=== PATIENT | male | born 1975 | race Caucasian/White ===

== ENCOUNTER 2018-01-31 10:53 | Emergency (ER) | END 2018-01-31 12:27 | disposition home or self-care (01) ==

== ENCOUNTER 2018-08-04 10:59 | Emergency (ER) | payer MEDICAID ==
[~2018-08-04] VITALS: Wt 84.1 kg
[~2018-08-04 10:59] MED LIST: NAPR-985 PO
[2018-08-04 11:03] VITALS: BP 141/85; PULSE 85; RESP 18
[2018-08-04] MEDS ORDERED: KETOROLAC 60 MG INJ IM STA (12:06)
[2018-08-04] MEDS ORDERED: IBUP-1542 PO (13:39)
--- NOTE | 2018-08-04 18:26 | ERD ---
ER Documentation Chief Complaint Chief Complaint LEFT SHOULDER PAIN, NO TRAUMA, ONSET YESTERDAY HPI 43-year-old male patient with no significant past medical history presents to ED complaining of left shoulder pain that started yesterday. States that he was sleeping in an awkward position, started to have pain when he woke up this morning. Reports that he was sleeping with his neck in a flexed position on to his left shoulder. Denies any direct trauma. Denies any fever, chills, chest pain, shortness of breath, nausea, vomiting, diarrhea, neck stiffness, wheezing. Denies any dyspnea on exertion orthopnea. ROS All systems reviewed and are negative except as per history of present illness. Medications Home Meds Active Scripts Ibuprofen* (Motrin*) 600 Mg Tab, 600 MG PO Q6, #30 TAB Prov:CONSUELO GREENE PA-C 08/04/18 Naproxen* (Naprosyn*) 500 Mg Tablet, 500 MG PO BID PRN for PAIN AND/OR INFLAMMATION, #30 TAB Prov:GERMÁN HARDEN PA-C 01/31/18 Allergies Allergies: Coded Allergies: No Known Allergy (Unverified , 01/31/18) PMhx/Soc Hx Alcohol Use: Yes (socially) Hx Substance Use: No Hx Tobacco Use: No Smoking Status: Never smoker FmHx Family History: No diabetes, No coronary disease Physical Exam Vitals Vital Signs Date Temp Pulse Resp B/P (MAP) Pulse Ox O2 O2 Flow FiO2 Time Delivery Rate 08/04/18 98.1 85 18 141/85 99 11:03 (103) Physical Exam Const: Srt-qni-g[place], well-nourished. In no acute distress. Head: Atraumatic, normocephalic. No hematoma. No moss sign. Eyes: Normal Conjunctiva without injection. No purulent discharge. PERRL. EOMI ENT: Normal external ear. Ear canal without erythema. Tympanic membrane pearly thorne without effusion or bulging. Nasal canal clear with normal turbinates. Moist oropharynx without tonsillar exudates. Non-erythematous pharynx. Uvula midline. No drooling. No trismus. Neck: Full range of motion. No meningismus. No cervical lymphadenopathy. Resp: Clear to auscultation bilaterally. No wheezing, rhonchi, rales, or crackles. No accessory muscle use. No retractions. Cardio: Regular rate and rhythm. No murmurs, rubs or gallops. Abd: Soft, non tender, non distended. Normal bowel sounds. No palpable masses. No rebound tenderness. No guarding. Skin: No petechiae or rashes Back: No midline tenderness. No CVA tenderness. Ext: No cyanosis, or edema. Tenderness to palpation of the left anterior humerus and AC joint. Limited range of motion with flexion extension, internal and external rotation. Patient also had some pain with abduction. Neur: Awake and alert. Psych: Normal Mood and Affect Results 24 hrs Current Medications Medications Dose Sig/Noe Start Time Status Last (Trade) Ordered Route PRN Stop Time Admin Dose Reason Admin Ketorolac 60 mg ONCE STAT 08/04/18 DC 08/04/18 Tromethamine IM 12:06 12:16 (Toradol) 08/04/18 12:09 Procedures/MDM 43-year-old male patient with no significant past medical history presents to ED complaining of left shoulder pain that started yesterday. Patient is afebrile and nontoxic-appearing. Differentials include shoulder tendinitis. Patient did have improvement with 60 mg IM Toradol. Patient's range of motion has also improved. Patient's extremity symptoms have stabilized while they have been evaluated in the department and are appropriate for outpatient follow up. No evidence of fractures, dislocations, compartment syndrome, neurologic injury, vascular injury, open joint, open fracture, tendon laceration, septic arthritis, osteomyelitis, DVT, foreign body, or other emergent conditions. Low suspicion for acute myocardial infarction, pneumothorax, pericarditis, myocarditis, end ocarditis, pneumonia, cardiac tamponade, pulmonary embolism, pleural effusion, AAA, aortic dissection, Boerhaave's syndrome, cardiac dysrhythmias,meningitis, intracranial bleed, seizure, stroke, TIA or other emergent conditions. Diagnosis: Shoulder pain Discharge medications: Ibuprofen Follow up with primary care physician in 1-2 days. Instructed patient to return to the ED sooner for any worsening symptoms. Patient's questions were answered. Patient is hemodynamically stable. Patient understood and agreed with discharge plan. Patient discharged stable. Disclaimer: Inadvertent spelling and grammatical errors are likely due to [employer]/dictation software use and do not reflect on the overall quality of patient care. Also, please note that the electronic time recorded on this note does not necessarily reflect the actual time of the patient encounter. Departure Diagnosis: Primary Impression: Shoulder pain Chronicity: acute Laterality: left Qualified Codes: M25.512 - Pain in left shoulder Condition: Stable Patient Instructions: Shoulder Pain (Uncertain Cause) Referrals: COMMUNITY CLINICS YOU HAVE RECEIVED A MEDICAL SCREENING EXAM AND THE RESULTS INDICATE THAT YOU DO NOT HAVE A CONDITION THAT REQUIRES URGENT TREATMENT IN THE EMERGENCY DEPARTMENT. FURTHER EVALUATION AND TREATMENT OF YOUR CONDITION CAN WAIT UNTIL YOU ARE SEEN IN YOUR DOCTORS OFFICE WITHIN THE NEXT 1-2 DAYS. IT IS YOUR RESPONSIBILITY TO MAKE AN APPOINTMENT FOR FOLOW-UP CARE. IF YOU HAVE A PRIMARY DOCTOR --you should call your primary doctor and schedule an appointment IF YOU DO NOT HAVE A PRIMARY DOCTOR YOU CAN CALL OUR PHYSICIAN REFERRAL HOTLINE AT IF YOU CAN NOT AFFORD TO SEE A PHYSICIAN YOU CAN CHOSE FROM THE FOLLOWING [facility] [address] [facility]. [facility] [address] [email or web address] [address] [facility] [address] [facility] [address] [facility]. [facility] [address] [facility]. [facility] YOU HAVE RECEIVED A MEDICAL SCREENING EXAM AND THE RESULTS INDICATE THAT YOU DO NOT HAVE A CONDITION THAT REQUIRES URGENT TREATMENT IN THE EMERGENCY DEPARTMENT. FURTHER EVALUATION AND TREATMENT OF YOUR CONDITION CAN WAIT UNTIL YOU ARE SEEN IN YOUR DOCTORS OFFICE WITHIN THE NEXT 1-2 DAYS. IT IS YOUR RESPONSIBILITY TO MAKE AN APPOINTMENT FOR FOLOW-UP CARE. IF YOU HAVE A PRIMARY DOCTOR --you should call your primary doctor and schedule and appointment IF YOU DO NOT HAVE A PRIMARY DOCTOR YOU CAN CALL OUR PHYSICIAN REFERRAL HOTLINE AT . IF YOU CAN NOT AFFORD TO SEE A PHYSICIAN YOU CAN CHOSE FROM THE FOLLOWING [facility] INSTITUTIONS: [facility] [address] [place] [address] [facility] [address] [place] [address] [facility] + [address] [address] [facility] URGENT CARE/SPECIALTIES Additional Instructions: Llame al doctor MAANA y kelsey diane REBECCA PARA DENTRO DE 2-3 QUINTEROS para diane derivacin para mikaela a un mdico ortopdico.Dgale a la secretaria que nosotros le instruimos hacer esta rebecca.Avise o llame si baldwin condicin se empeora antes de la rebecca. Regresa aqui si peor o no mejor. CONSUELO GREENE PA-C August 04, 2018 18:26
== END 2018-08-04 13:46 | disposition home or self-care (01) ==
LOC: FTE 10:59
DX: M25.512 Pain in left shoulder (principal)
CPT/HCPCS: 73030; 96372; J1885; Z7502